=== PATIENT | female | born 1990 | race Caucasian/White ===

== ENCOUNTER 2020-08-21 11:51 | Day surgery (SDC) | payer MEDICAID ==
[2020-08-19 12:21] VITALS: BMI 44.6
[~2020-08-21 11:51] MED LIST: DEXAMETHASONE SOD PHOSPHATE 4 MG/ML 1 ML VIAL IV PRN; FAMOTIDINE 20 MG/2 ML VIAL IV PRN; ONDANSETRON 4 MG/2 ML VIAL IVP PRN
[2020-08-21 12:31] VITALS: RESP 16
[2020-08-21] MEDS: ONDANSETRON 4 MG/2 ML VIAL IVP ONE ×2 (12:49→15:41)
[2020-08-21] MEDS ORDERED: DEXAMETHASONE SOD PHOSPHATE 4 MG/ML 1 ML VIAL IVP ONE (12:49)
[2020-08-21] MEDS: LACTATED RINGERS 1,000 ML IV SCH ×2 (12:52→17:15)
[2020-08-21] MEDS ORDERED: MIDAZOLAM 2 MG/2 ML VIAL ONE (14:03)
[2020-08-21] MEDS ORDERED: SUCCINYLCHOLINE CHLORIDE VIAL 200 MG/10 ML VIAL IV ONE (14:03)
[2020-08-21] MEDS ORDERED: DEXAMETHASONE SOD PHOSPHATE 10 MG/ML 1 ML VIAL ONE (14:03)
[2020-08-21] MEDS ORDERED: fentaNYL (PF) 50 MCG/ML 2 ML AMP ONE (14:03)
[2020-08-21] MEDS ORDERED: LIDOCAINE 1% INJ 10MG/ML (20 ML MDV) ONE (14:03)
[2020-08-21] MEDS ORDERED: PROPOFOL 10 MG/ML 20 ML VIAL IV ONE (14:03)
--- NOTE | 2020-08-21 15:18 | P.OP ---
Date of Procedure: 08/21/20 Preoperative Diagnosis: Chronic tonsillits Adenotonsillar hypertrophy Postoperative Diagnosis: Same Procedure(s) Performed: Adenotonsillectomy Anesthesia: JAYEA Surgeon: Dylan Castaneda Estimated Blood Loss (ml): 2 Pathology: other (Tonsils) Condition: stable Disposition: PACU Indications for Procedure: Is a 29-year-old white female whose had difficulties with chronic and recurrent tonsillitis as well as chronically enlarged tonsils Operative Findings: Adenoids mildly enlarged and therefore were vaporized with suction cautery, tonsils +4 bilaterally-severely enlarged Description of Procedure: PROCEDURE: The patient was brought into the operative suite and placed in the supine position. The patient underwent induction of general anesthesia with oral endotracheal intubation without difficulty. The table was turned 90 degrees and the patient was positioned with a shoulder roll and head donut. The patient was prepped and draped in the usual aseptic fashion. The McIvor mouth gag was placed. The soft palate was palpated. No submucous cleft was noted. Red rubber Taveras catheters were placed through both nasal cavities and pulled through the oropharynx for soft palate retraction. The nasopharynx was examined with a mirror examine and the adenoids were vaporized/cauterized with suction cautery. This ablated the adenoids and there was good hemostasis noted. The red rubber Taveras catheters were removed. The left tonsil was then grasped with a curved Allis clamp and dissected from the tonsillar fossa in a superior to inferior direction using both blunt and electrocautery dissection until the tonsils was removed. Once the tonsils were removed, hemostasis was gained with suction cautery. Attention was then turned to the right where the right tonsil was removed exactly as the left had been. Once hemostasis was obtained and remained good in both tonsillar fossa as well as the nasopharynx, the patient was suctioned in an orogastric fashion and the McIvor mouth gag was removed. The patient was then allowed to emerge from general anesthesia, having tolerated the procedure well. The patient was extubated in the operative suite and transferred to the postoperative recovery area in satisfactory condition.
[2020-08-21 15:30] VITALS: TEMP 99.5
[2020-08-21] MEDS: HYDROmorphone 0.5 MG/0.5 ML SYRINGE IVP PRN ×2 (15:38→15:54)
[2020-08-21 17:33] VITALS: BP 129/90; PULSE 102
== END 2020-08-21 17:45 | disposition home or self-care (01) ==
LOC: OR 11:51
PROVIDERS: ATTEND Otolaryngology
DX: J35.01 Chronic tonsillitis (principal); J03.91 Acute recurrent tonsillitis, unspecified; Z91.09 Other allergy status, other than to drugs and biological substances; F32.9 Major depressive disorder, single episode, unspecified; Z86.69 Personal history of other diseases of the nervous system and sense organs; Z79.899 Other long term (current) drug therapy; Z79.52 Long term (current) use of systemic steroids; Z80.3 Family history of malignant neoplasm of breast; Z80.0 Family history of malignant neoplasm of digestive organs; Z83.3 Family history of diabetes mellitus; Z83.42 Family history of familial hypercholesterolemia; Z81.1 Family history of alcohol abuse and dependence; Z81.2 Family history of tobacco abuse and dependence; K21.9 Gastro-esophageal reflux disease without esophagitis; E66.01 Morbid (severe) obesity due to excess calories; Z68.42 Body mass index [BMI] 45.0-49.9, adult; Z98.890 Other specified postprocedural states
CPT/HCPCS: 81025; 42821; J2250; J0330; J1100 ×2; J2405; J2001; J3010; J2704; J1170; 88304

== ENCOUNTER 2020-11-23 00:05 | Emergency (ER) | payer MEDICAID ==
[2020-11-23 00:11] VITALS: TEMP 98.7
[2020-11-23] MEDS ORDERED: LIDOCAINE 1% INJ 10MG/ML (20 ML MDV) SQ ONE (00:26)
--- NOTE | 2020-11-23 00:37 | ED ---
Lower Extremity Injury HPI - General Chief Complaint: Extremity Injury, Lower Stated Complaint: Lt foot injury Time Seen by Provider: 11/23/20 00:13 Source: patient Mode of arrival: ambulatory Limitations: no limitations - History of Present Illness Initial Comments: Patient is a 29-year-old female presenting to the emergency Department with complaints of an injury to her left toenail. Patient states she was moving a couch when it slipped and caught her toenail bending it backwards. Patient states she tried to bend it forward and also to clip the nail however is way too painful and started having some nausea. She denies any pain of the rest the toe just in the nail area. She has no further complaints tonight. Her vital signs are stable upon arrival. - Related Data Home Medications Medication Instructions Recorded Confirmed Cholecalciferol [Vitamin D3 (25 2,000 unit PO BID 08/19/20 08/19/20 Mcg = 1000 Iu)] DULoxetine HCL [Cymbalta] 20 mg PO HS 08/19/20 08/19/20 Levocetirizine Dihydrochloride 5 mg PO QAM 08/19/20 08/19/20 [Xyzal] Omeprazole 20 mg PO QAM 08/19/20 08/19/20 Zafirlukast [Accolate] 20 mg PO BID 08/19/20 08/19/20 Allergies Allergy/AdvReac Type Severity Reaction Status Date / Time No Known Allergies Allergy Verified 11/23/20 00:11 Review of Systems ROS Statement: Those systems with pertinent positive or pertinent negative responses have been documented in the HPI. ROS Other: All systems not noted in ROS Statement are negative. Past Medical History Past Medical History: GERD/Reflux Additional Past Medical History / Comment(s): occ migranes History of Any Multi-Drug Resistant Organisms: None Reported Past Surgical History: Tonsillectomy Additional Past Surgical History / Comment(s): cyst removed from left wrist wisdom teeth removed Past Anesthesia/Blood Transfusion Reactions: No Reported Reaction Past Psychological History: Anxiety, Depression Smoking Status: Former smoker Past Alcohol Use History: Occasional Past Drug Use History: None Reported - Past Family History Mother Family Medical History: No Reported History General Exam - General Exam Comments Initial Comments: GENERAL: Patient is well-developed and well-nourished. Patient is nontoxic and in no acute distress. HEAD: Atraumatic, normocephalic. EYES: Pupils equal round and reactive to light, extraocular movements intact, sclera anicteric, conjunctiva are normal. Eyelids were unremarkable. ENT: Nares patent, oropharynx clear without exudates. Moist mucous membranes. NECK: Normal range of motion, supple without lymphadenopathy or JVD. LUNGS: Unlabored respirations. Breath sounds clear to auscultation bilaterally and equal. No wheezes rales or rhonchi. HEART: Regular rate and rhythm without murmurs, rubs or gallops. ABDOMEN: Soft, nontender, normoactive bowel sounds. : Deferred MUSCULOSKELETAL: Normal extremities with adequate strength and normal range of motion, no pitting or edema. No clubbing or cyanosis. NEUROLOGICAL: Patient is alert and oriented x 3. Normal speech, normal gait. PSYCH: Normal mood, normal affect. SKIN: Warm, Dry, normal turgor, no rashes. Patient's left great toenail is bent upward, some dried blood underneath, partially avulsed, nailbed intact, no active bleeding. Limitations: no limitations Course Vital Signs 11/23/20 11/23/20 00:07 02:42 Temperature 98.7 F Pulse Rate 133 H 89 Respiratory 18 16 Rate Blood Pressure 158/94 146/94 O2 Sat by Pulse 98 97 Oximetry Procedures - Procedures Initial comment: Patient has a partially of falls left great toenail, it is bent backwards towards the distal end. I did attempt a digital block of the toe with 1% lidocaine, over this was unsuccessful so I did inject some lidocaine underneath the nailbed. We were able to trim the toenail down and pull back the toenail such as resting in appropriate position. Patient tolerated procedure well. Toe was also cleaned, covered with a bandage. Medical Decision Making - Medical Decision Making Patient is a 29-year-old female here with a partial avulsed left toenail, it was bent backwards after she stubbed on a couch. It was able to get the toe now and, we did trim the toenail down and were able to pull it back over the distal end of the toe. Patient's wound was cleaned, covered with a bandage. Patient will continue with warm water soaks at home and topical antibiotic. She is stable for discharge. She'll follow up with her regular doctor. Case discussed with Dr. Nance. Disposition Clinical Impression: Traumatic loss of toenail of left great toe Disposition: HOME SELF-CARE Condition: Stable Instructions (If sedation given, give patient instructions): Nail Avulsion (ED) Additional Instructions: Please return to the Emergency Department if symptoms worsen or any other conc erns. Please do warm water soaks once or twice a day for the next 3-4 days. Keep area covered while wearing shoes. Apply topical antibiotic twice daily Is patient prescribed a controlled substance at d/c from ED?: No Referrals: Hilario Mendez MD [Primary Care Provider] - 1-2 days
[2020-11-23] MEDS ORDERED: LIDOCAINE/EPINEPHR/TETRACAINE 5 ML BOTTLE TOPICAL ONE (01:37)
[2020-11-23 02:43] VITALS: BP 146/94; PULSE 89; RESP 16
== END 2020-11-23 02:43 | disposition home or self-care (01) ==
LOC: EC 00:05
DX: S90.212A Contusion of left great toe with damage to nail, initial encounter (principal); F32.9 Major depressive disorder, single episode, unspecified; F41.9 Anxiety disorder, unspecified; K21.9 Gastro-esophageal reflux disease without esophagitis; Z87.891 Personal history of nicotine dependence; X58.XXXA Exposure to other specified factors, initial encounter
CPT/HCPCS: 99283; J2001